=== PATIENT | male | born 1940 | race African-American/Black ===

== ENCOUNTER 2018-04-03 11:47 | Emergency (ER) | payer OTHER ==
[~2018-04-03] VITALS: Ht 180.3 cm; Wt 104.3 kg
[2018-04-03] MEDS ORDERED: BUTALBITAL-ACE1 EACH (12:01)
[2018-04-03] MEDS ORDERED: COZAAR100 MG (12:01)
[2018-04-03] MEDS ORDERED: COMBIGAN EYE DRO5 ML (12:02)
== END 2018-04-03 15:29 | disposition home or self-care (01) ==
LOC: ER 11:47
DX: G89.29 Other chronic pain (principal); R51 Headache